=== PATIENT | female | born 1965 | race Caucasian/White ===

== ENCOUNTER 2017-09-11 10:14 | Inpatient (IN) | payer BC, OTHER ==
[~2017-09-11] VITALS: Ht 167.6 cm; Wt 61.2 kg
[2017-09-11 17:15] VITALS: BP 132/72
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
[2017-09-11] MEDS ORDERED: DOCUSATE SODIUM 250 MG CAPSULE PO PRN (17:30)
[2017-09-11] MEDS ORDERED: MIRALAX 17 GM POWD.PACK PO PRN (17:30)
[2017-09-11] MEDS ORDERED: LOPERAMIDE HCL 2 MG CAPSULE PO PRN ×2 (17:30)
[2017-09-11] MEDS ORDERED: MAGNESIUM HYDROXIDE 30 ML LIQUID UDC PO PRN (17:30)
[2017-09-11] MEDS ORDERED: ONDANSETRON 4 MG/2 ML VIAL IM PRN (17:30)
[2017-09-11] MEDS ORDERED: DICYCLOMINE HCL 20 MG TABLET PO PRN (17:30)
[2017-09-11] MEDS ORDERED: BUPRENORPHINE HCL 2 MG TAB.SUBL SL PRN (17:30)
[2017-09-11] MEDS ORDERED: MAG HYDROX/AL HYDROX/SIMETH 30 ML LIQUID UDC PO PRN (17:30)
[2017-09-11] MEDS ORDERED: LORAZEPAM 1 MG TABLET PO PRN (17:30)
[2017-09-11] MEDS ORDERED: LORAZEPAM 2 MG/1 ML VIAL IM PRN (17:30)
[2017-09-11] MEDS ORDERED: ACETAMINOPHEN 325 MG TABLET PO PRN (17:30)
[2017-09-11 18:14] LABS: BASOPHILS % (AUTO) 0.7 % (0.0-2.0); EOSINOPHILS % (AUTO) 0.8 % (0.0-7.0); HEMATOCRIT 41.4 % (31.2-41.9); HEMOGLOBIN 14.5 g/dL (10.9-14.3); LYMPHOCYTES % (AUTO) 49.6 % (20.5-51.5); MEAN CORPUSCULAR HEMOGLOBIN 33.9 uug (24.7-32.8); MEAN CORPUSCULAR HGB CONC 35 g/dL (32.3-35.6); MEAN CORPUSCULAR VOLUME 96.7 fL (75.5-95.3); MONOCYTES # (AUTO) 0.6 K/uL (2.0-10.0); MONOCYTES % (AUTO) 10.7 % (0.0-11.0); NEUTROPHILS # (AUTO) 2.3 K/uL (1.8-8.9); NEUTROPHILS % (AUTO) 38.2 % (38.5-71.5); PLATELET COUNT (AUTO) 268 K/uL (179-408); RED BLOOD CELL COUNT(AUTO) 4.28 MIL/uL (3.63-4.92)
[2017-09-11 18:24] LABS: *URINE HCG, QUAL NEGATIVE (NEGATIVE)
[2017-09-11 18:26] LABS: ETHANOL < 3 MG/DL (0-0)
[2017-09-11 18:31] LABS: *AMPHETAMINE, URINE NEGATIVE (NEGATIVE); *BARBITURATE, URINE POSITIVE (NEGATIVE); *CANNABINOID, URINE POSITIVE (NEGATIVE); *COCCAINE, URINE NEGATIVE (NEGATIVE); *OPIATE, URINE POSITIVE (NEGATIVE); *PHENCYCLIDINE SCREEN,URINE NEGATIVE (NEGATIVE)
[2017-09-11 18:36] LABS: ALANINE AMINOTRANSFERASE 24 U/L (14-59); ALKALINE PHOSPHATASE 51 U/L (50-136); ASPARTATE AMINOTRANSFERASE 7 U/L (15-37); BILIRUBIN,TOTAL 0.3 mg/dL (0.2-1.0); CARBON DIOXIDE 29 mmol/L (21-32); CHLORIDE 96 mmol/L (98-107); CREATININE 0.9 mg/dL (0.6-1.3); GLUCOSE 93 mg/dL (74-106); POTASSIUM 3.6 mmol/L (3.5-5.1); TOTAL PROTEIN, SERUM 7.9 g/dL (6.4-8.2); UREA NITROGEN, BLOOD 6 mg/dL (7-18)
[2017-09-11] MEDS ORDERED: METO75TA PO (18:42)
[2017-09-11] MEDS ORDERED: LOSA100T15 PO (18:42)
[2017-09-11] MEDS ORDERED: ESCI20TA PO ×2 (18:42→20:29)
[2017-09-11] MEDS ORDERED: ASPI1TAB4 PO (18:42)
[2017-09-11] MEDS ORDERED: LEVE500T9 PO (18:42)
[2017-09-11] MEDS ORDERED: HYDR12.5 PO (18:43)
[2017-09-11] MEDS ORDERED: TOPI50TA PO (18:43)
[2017-09-11 18:45] LABS: THYROID STIMULATING HORMONE 1.579 mIU/mL (0.358-3.740)
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
[2017-09-11] MEDS ORDERED: PATIENT MAY USE OWN MED- MD OK PO PRN (19:30)
--- NOTE | 2017-09-11 19:30 | NUR ---
Start of Shift Pt is a 52 y/o femaile admitted 09/11/17 for medically managed withdrawal/detox from Prescription Opiates, Valium. Last opiate use at 1630 and last valium use 1200 hours. GRISEL/RUSSELL reported as 2/3. Pt found sitting on bed, in dim light, eyes red yet laughing with DIESEL ELECTRICIAN, appears worried, states concern about withdrawal. States she has a H/A, request Fioricet. Explained to pt that a narcotic is probably not to be administered in this setting. GRISEL/RUSSELL 2/3 day shift, 08/27 at 2100. Ativan 1mg with 2100 meds, will monitor and reavaluate in 1 hour, promptly attending to all needs.
[2017-09-11 20:00] VITALS: BP 113/48
[2017-09-11] MEDS ORDERED: TIZA4TAB4 PO (20:29)
[2017-09-11] MEDS ORDERED: METH-406 PO (20:29)
[2017-09-11] MEDS ORDERED: BACL10TA PO (20:29)
[2017-09-11] MEDS ORDERED: ONDA4TAB10 PO (20:29)
[2017-09-11] MEDS ORDERED: OXYC-133 PO (20:29)
[2017-09-11] MEDS ORDERED: MORP30TA59 PO (20:29)
[2017-09-11] MEDS ORDERED: METOPROLOL 50 MG PO SCH (21:00)
[2017-09-11] MEDS ORDERED: PATIENT MAY USE OWN MED- MD OK PO SCH (21:00)
[2017-09-11] MEDS: GABAPENTIN 300 MG CAPSULE PO SCH (21:53)
[2017-09-11] MEDS: LORAZEPAM 1 MG TABLET PO PRN (21:55)
--- NOTE | 2017-09-11 21:55 | NUR ---
PRN Med Ativan 1mg PO given for CIWA 11, anxiety and agitation. Will continue to monitor and attend to all needs promptly
--- NOTE | 2017-09-11 22:55 | NUR ---
PRN Med Reassessment Ativan 1mg PO. Pt found laying in bed, reports decreased anxiety, has wet compress over forehead and eyes, reporting H/A. Will continue to monitor and attend to all needs promptly
[2017-09-11] MEDS ORDERED: TIZANIDINE PO PRN (23:15)
[2017-09-11] MEDS ORDERED: [UNRECOGNIZED DRUG - OTHER] PO PRN (23:15)
[2017-09-11] MEDS: diphenhydrAMINE 50 MG CAPSULE PO PRN (23:39)
--- NOTE | 2017-09-11 23:40 | NUR ---
PRN Meds Tylenol 650mg PO and Benedryl 50mg PO given for c/o H/A 10, and insomnia. Will reassess in 1 hour and continue to monitor, promptly attending to all needs
[2017-09-12] VITALS (8 sets, daily range): BP systolic 138–189; BP diastolic 67–106
--- NOTE | 2017-09-12 00:40 | NUR ---
PRN Med Reassessment Tylenol 650mg PO and Benedryl 50mg PO given 2340 for H/A and insomnia. H/A improved to 3/10, still no drowsiness. VS's obtained, show BP of 152/101, HR 43. Will continue to monitor and promptly attend to all needs
[2017-09-12] MEDS: METHOCARBAMOL 750 MG TABLET PO PRN (01:07)
[2017-09-12] MEDS: hydrALAZINE HCL 50 MG TABLET PO PRN ×3 (01:08→21:09)
--- NOTE | 2017-09-12 01:10 | NUR ---
PRN Meds C/O back pain, 08/26, BP 152/101, HR 43 (pt states low HR is normal for her from much physical training and marathons in past) Apresoline 50mg PO and Robaxin 750mg PO given. Will continue to monitor and attend to all needs promptly
--- NOTE | 2017-09-12 07:30 | NUR ---
End of Shift Notes: Pt currently in bed with eyes closed. Pt slept for 2 hours. Pts last COWS was 3 and CIWA was 5 at 0000 when pt was woken up while asleep. Pt received PRN Robaxin and PRN Tylenol for pain, PRN Hydralazine for hypertension, and PRN Ativan for increased withdrawal symptoms. Fall and Sz precautions observed. Bed in lowest position. Side rails up x2. Call light functioning and within reach. All needs attended and met. Will endorse to day shift nurse.
--- NOTE | 2017-09-12 07:31 | NUR ---
Start of Shift Animal Skinner received report on 52 year old female admitted to [facility] on 09/11/17 for medical management of Benzodiazepine and Opiate withdrawal. Pt endorses allergies to Hydrocodone, Morphine, Naloxone and Naltrexone. Pt PMH of HTN, Fibromyalgia, Migraines, depression and a history of withdrawal related seizures. Pt has a history of Bradycardia due to pt's training and running in Marathons. Pt to be started on Ativan and Subutex taper this am. Pt administered Ativan(anxiety), Tylenol(pain), Robaxin(muscle aches), Benadryl(insomnia) and Apresoline(HTN) on NOC, per report. Pt's last COWS 3 and CIWA 3 per NOC report. Animal Skinner encounters pt in her room, resting. Pt is A/O x4 and able to make needs known. Clear of thought and speech. Flat affect with normal mood. Endorses feeling generalized fatigue, muscle cramps, nausea and anxiety. Bed in low position with wheels locked and side rails up x2. Will continue to monitor, support and encourage according to plan of care.
[2017-09-12] MEDS: LOSARTAN POTASSIUM 100 MG PO SCH (08:45)
[2017-09-12] MEDS: GABAPENTIN 300 MG CAPSULE PO SCH ×2 (08:46→21:08)
[2017-09-12] MEDS: BUPRENORPHINE HCL 2 MG TAB.SUBL SL SCH ×4 (08:46→21:10)
[2017-09-12] MEDS: METOPROLOL TARTRATE 50 MG TABLET PO SCH ×2 (08:47→17:37)
[2017-09-12] MEDS: IBUPROFEN 600 MG TABLET PO PRN (08:47)
[2017-09-12] MEDS: LORAZEPAM 1 MG TABLET PO SCH ×4 (08:47→21:09)
--- NOTE | 2017-09-12 08:47 | NUR ---
PRN Frankrin Pt complain of pain related to withdrawal and requests medication. Non-pharmacological interventions attempted. Trimmer And Reinforcer administers medication per order and pt tolerates well. Will continue to monitor, support and encourage according to plan of care.
[2017-09-12] MEDS ORDERED: TUBERCULIN,PURIF.PROT.DERIV. 5 TU/0.1 ML TEST ID ONE (09:00)
--- NOTE | 2017-09-12 09:47 | NUR ---
PRN Re-Assessment Pt states her pain has minimized, but not eliminated. " I feel better, good for now." Will continue to monitor, support and encourage according to plan of care.
[2017-09-12] MEDS: ESCITALOPRAM OXALATE 10 MG TABLET PO SCH (10:48)
--- NOTE | 2017-09-12 10:48 | NUR ---
PRN Apresoline Pt's BP on 8am check elevated. Wire Transfer Clerk administered am medication, including HTN medication. Wire Transfer Clerk re-checked BP: 161/89. Wire Transfer Clerk administered medication to order and pt tolerated well. Will continue to monitor, support and encourage according to plan of care .
[2017-09-12] MEDS ORDERED: LOSARTAN POTASSIUM 50 MG TABLET PO SCH (11:30)
--- NOTE | 2017-09-12 12:00 | NUR ---
PRN Re-Assessment Vfx Artist deferred to noon VS for re-check on BP: 138/88. Medication effective. Will continue to monitor, support and encourage according to plan of care.
--- NOTE | 2017-09-12 19:11 | NUR ---
End of Shift Infantry Officer provided report on 52 year old female admitted to [facility] on 09/11/17 for medical management of Benzodiazepine and Opiate withdrawal. Pt endorses allergies to Hydrocodone, Morphine, Naloxone and Naltrexone. Pt PMH of HTN, Fibromyalgia, Migraines, depression and a history of withdrawal related seizures. Pt was administered Motrin(pain) and Apresoline(HTN) on a PRN basis today. Pt was started on an Ativan and Subutex taper, tolerating well with last COWS 9 and CIWA 10. Pt with complaints of nausea, muscle caches and is diaphoretic. Pt responds well to scheduled doses. Pt is A/O x4 and able to make needs known. Clear of thought and speech. Pt has a restricted affect with anxious mood. Pt is pleasant and polite and makes minimal complaints. Bed in low position with wheels locked and side rails up x2. Will continue to monitor, support and encourage according to plan of care.
--- NOTE | 2017-09-12 19:30 | NUR ---
START OF SHIFT Received 52 year old female patient admitted on 09/11/17 for Benzodiazepine and Opiate withdrawal. Pt is alert and oriented x4. She is receiving a 5 day Subutex and 5 day Ativan taper and tolerating well. She is noted to be anxious, restless,fidgety, sweaty, tremulous and agitated. She complains of clammy skin, body aches, sensitivity to light and sound, headache, and difficulty falling asleep. Per endorsement, she received PRN Motrin and Apresoline. Breathing is even and unlabored, safety measures in place. Will monitor.
[2017-09-12] MEDS: diphenhydrAMINE 50 MG CAPSULE PO PRN (21:08)
--- NOTE | 2017-09-12 21:09 | NUR ---
PRN BENADRYL/APRESOLINE Pt complains of insomnia. Pt also noted with increased BP; 159/101, HR:88. PRN Benadryl and Apresoline administered as ordered. Breathing even and unlabored, safety measures in place. Will monitor.
--- NOTE | 2017-09-12 22:09 | NUR ---
PRN REASSESSMENT PRN Benadryl ineffective. Pt still awake watching TV. PRN Apresoline effective. BP: 165/84, HR: 64. Safety measures in place. Will monitor.
[2017-09-13] VITALS: BP 156/86
[2017-09-13] MEDS: LORAZEPAM 1 MG TABLET PO PRN (00:52)
--- NOTE | 2017-09-13 00:52 | NUR ---
PRN ATIVAN Pt noted to be anxious, restless and agitated. CIWA:11. PRN Ativan 1 mg administered as ordered. Safety measures in place. Will monitor effectiveness.
--- NOTE | 2017-09-13 01:52 | NUR ---
PRN ATIVAN REASSESSMENT PRN medication effective. Pt is lying in bed with eyes closed noted to be asleep. Breathing is even and unlabored, safety measures in place. Will monitor.
[2017-09-13 04:00] VITALS: BP 148/88
--- NOTE | 2017-09-13 07:11 | NUR ---
END OF SHIFT Pt is a 52 year old female patient admitted on 09/11/17 for Benzodiazepine and Opiate withdrawal. Pt remains alert and oriented x4. She continues on a 5 day Subutex and 5 day Ativan taper and tolerating well. She was noted to be anxious, restless,fidgety, sweaty, tremulous, hypertensive and agitated during the shift. She had complaints of insomnia and anxiety. She received PRN Apresoline, Benadryl and Ativan. She slept a total of 4 hrs, Intake: 1,350mL, Void: x1, BM:0, CIWA:11, COWS: 9 at 0000. Breathing is even and unlabored, safety measures in place. Endorsed to AM shift.
--- NOTE | 2017-09-13 07:15 | NUR ---
Start of Shift Teacher Resource received report on 52 year old female admitted to [facility] on 09/11/17 for medical management of Benzodiazepine and Opiate withdrawal. Pt endorses allergies to Hydrocodone, Morphine, Naloxone and Naltrexone. Pt PMH of HTN, Fibromyalgia, Migraines, depression and a history of withdrawal related seizures. Pt has a history of Bradycardia due to pt's training and running in Marathons. Pt administered Ativan(anxiety), Benadryl(insomnia) and Apresoline(HTN) on NOC, per report. Pt's last COWS 9 and CIWA 11 per NOC report. Teacher Resource encounters pt in her room resting with eyes closed, rise and fall of chest noted, with even and unlabored respirations. Bed in low position with wheels locked and side rails up x2. Will continue to monitor, support and encourage according to plan of care.
[2017-09-13 08:06] LABS: HEPATITIS B SURFACE AG Negative (Negative)
[2017-09-13 08:27] VITALS: BP 148/94
[2017-09-13] MEDS ORDERED: HYDROXYZINE PAMOATE 25 MG CAPSULE PO PRN (09:00)
[2017-09-13] MEDS: BUPRENORPHINE HCL 2 MG TAB.SUBL SL SCH ×3 (10:04→20:14)
[2017-09-13] MEDS: LORAZEPAM 1 MG TABLET PO SCH ×3 (10:04→20:12)
[2017-09-13] MEDS: METOPROLOL TARTRATE 50 MG TABLET PO SCH ×2 (10:04→17:21)
[2017-09-13] MEDS: GABAPENTIN 300 MG CAPSULE PO SCH ×3 (10:04→20:13)
[2017-09-13] MEDS: ESCITALOPRAM OXALATE 10 MG TABLET PO SCH (10:05)
[2017-09-13] MEDS: LOSARTAN POTASSIUM 100 MG PO SCH (10:06)
--- NOTE | 2017-09-13 10:07 | NUR ---
PRN Tizanidine Pt complain of back pain and spasms and requests her home medication for spasms. Wildlife Science Professor administers per order with pt toelrating well. Will continue to monitor, support and encourage according to plan of care.
[2017-09-13] MEDS: ONDANSETRON ODT 4 MG TAB.RAPDIS SL PRN ×2 (10:40→20:14)
--- NOTE | 2017-09-13 10:40 | NUR ---
PRN Zofran Pt complain of worsening nausea without emesis. Transformation Architect administers mediation per order with pt tolerating well. Will continue to monitor, support and encourage according to plan of care.
--- NOTE | 2017-09-13 11:07 | NUR ---
PRN Tizanidine Re-Assessment Pt endorses relief, stating, " not nearly as tight." Will continue to monitor, support and encourage according to plan of care.
--- NOTE | 2017-09-13 11:10 | NUR ---
ESME Richards Re-Assessment Pt reports improved nausea, " feeling better." Will continue to monitor, support and encourage according to plan of care.
[2017-09-13 12:30] VITALS: BP 113/77
[2017-09-13] MEDS: DICYCLOMINE HCL 20 MG TABLET PO SCH ×2 (14:40→20:14)
[2017-09-13 17:06] VITALS: BP 152/88
--- NOTE | 2017-09-13 18:56 | NUR ---
End of Shift Laborer Hoisting provided report on 52 year old female admitted to [facility] on 09/11/17 for medical management of Benzodiazepine and Opiate withdrawal. Pt endorses allergies to Hydrocodone, Morphine, Naloxone and Naltrexone. Pt PMH of HTN, Fibromyalgia, Migraines, depression and a history of withdrawal related seizures. Pt has a history of Bradycardia due to pt's training and running in Marathons. Pt administered Tizanidine(muscle spasms) and Zofran(nausea). Pt currently on a Subutex and Ativan taper. Pt's last COWS 8 and CIWA 9 recorded at 1600. Pt has been calm and cooperative, makes her needs known. Normal affect with congruent mood. Pt is diaphoretic, has muscle spasms and is nauseous at times. A/O x4, clear thought and speech process. Pt has been isolative to room and self, withdrawn and guarded. Bed in low position with wheels locked and side rails up x2. Will continue to monitor, support and encourage according to plan of care.
--- NOTE | 2017-09-13 19:30 | NUR ---
START OF SHIFT Received 52 year old female patient admitted on 09/11/17 for Benzodiazepine and Opiate withdrawal. Pt is alert and oriented x4. She continues on a 5 day Ativan and 5 day Subutex taper and is tolerating well. She reports anxiety, chills, sweats, agitation, restlessness, nausea, appetite loss, abdominal cramps, body aches, and insomnia. Per endorsement, she received PRN Zofran. Last COWS:8, CIWA: 9 at 1600. Breathing is even and unlabored, safety measures in place. Will monitor.
[2017-09-13 20:01] VITALS: BP 178/90
[2017-09-13] MEDS: BACLOFEN 10 MG TABLET PO SCH (20:13)
[2017-09-13] MEDS: diphenhydrAMINE 50 MG CAPSULE PO PRN (20:13)
--- NOTE | 2017-09-13 20:13 | NUR ---
PRN ZOFRAN/BENADRYL Pt complains of nausea and insomnia. PRN Zofran and Benadryl administered as ordered. Breathing even and unlabored, safety measures in place. Will continue to monitor.
[2017-09-13] MEDS ORDERED: AMLODIPINE 5 MG TABLET PO SCH (21:00)
--- NOTE | 2017-09-13 21:13 | NUR ---
PRN REASSESSMENT PRN medications effective. Pt is lying in bed with eyes closed noted to be asleep. Breathing is even and unlabored, safety measures in place. Will continue to monitor.
[2017-09-14] VITALS: BP 134/68
[2017-09-14 04:00] VITALS: BP 129/76
--- NOTE | 2017-09-14 07:16 | NUR ---
END OF SHIFT Pt is a 52 year old female patient admitted on 09/11/17 for Benzodiazepine and Opiate withdrawal. Pt remains alert and oriented x4. She continues on a 5 day Ativan and 5 day Subutex taper. She is currently on day 08/21 and is tolerating well. She had complaints of anxiety, chills, sweats, agitation, restlessness, nausea, abdominal cramps, body aches, and insomnia during the shift. At 2012 she received PRN Zofran and Benadryl. She slept a total of 8hrs, Intake: 1,750mL, Void:x4, BM:0, COWS:9, CIWA:9 at 2000. Breathing is even and unlabored, safety measures in place. Endorsed to AM shift.
--- NOTE | 2017-09-14 07:30 | NUR ---
START OF SHIFT Pt 52 y/o female admitted for bzd and opioid withdrawal. Pt received in room on bed with eyes closed resting, but easily arousable to name. Pt alert and oriented to name, place, and time. Perrla. Skin warm and moist to touch. Respirations even and unlabored. Bilateral hand tremors noted. Pt appears unkempt and disheveled. Clothes scattered throughout the room. Encouraged to maintain hygiene. It was reported that pt slept for 8 hours last night. Last cows=9 and ciwa=9 reported at 1999. Bed on lowest position with side rails x2 up for safety. Call light within reach. Addendum: 09/14/17 at 0944 by HANNAH FRANCIS RN additional Pt is on a 5 day ativan taper and is on day 2. Pt is on a 5 day subutex taper and is on day 2.
[2017-09-14 08:00] VITALS: BP 127/76
[2017-09-14] MEDS: LOSARTAN POTASSIUM 100 MG PO SCH (08:26)
[2017-09-14] MEDS: GABAPENTIN 300 MG CAPSULE PO SCH ×2 (08:26→14:34)
[2017-09-14] MEDS: LORAZEPAM 1 MG TABLET PO SCH ×2 (08:26→12:07)
[2017-09-14] MEDS: BACLOFEN 10 MG TABLET PO SCH ×2 (08:26→21:44)
[2017-09-14] MEDS: ESCITALOPRAM OXALATE 10 MG TABLET PO SCH (08:26)
[2017-09-14] MEDS: DICYCLOMINE HCL 20 MG TABLET PO SCH ×3 (08:27→21:41)
[2017-09-14] MEDS: METOPROLOL TARTRATE 50 MG TABLET PO SCH ×2 (08:27→17:04)
[2017-09-14] MEDS ORDERED: AMLODIPINE 5 MG TABLET PO SCH (09:00)
[2017-09-14] MEDS ORDERED: BUPRENORPHINE HCL 2 MG TAB.SUBL SL SCH (09:00)
[2017-09-14 12:00] VITALS: BP 147/82
--- NOTE | 2017-09-14 12:30 | NUR ---
Therapist prompted client about group times. Client stated she does not plan to attend groups today because she feels "sore and tired."
[2017-09-14] MEDS: BUPRENORPHINE HCL 2 MG TAB.SUBL SL SCH ×2 (14:33→21:44)
[2017-09-14 16:00] VITALS: BP 159/93
[2017-09-14] MEDS ORDERED: LORAZEPAM 1 MG TABLET PO SCH ×2 (17:00→21:00)
[2017-09-14] MEDS: ASPIRIN/ACETAMINOPHEN/CAFFEINE TABLET PO PRN (17:04)
[2017-09-14] MEDS: ONDANSETRON ODT 4 MG TAB.RAPDIS SL PRN (17:04)
--- NOTE | 2017-09-14 17:10 | NUR ---
PRN Pt states has migraine 01/26. Excedrin po prn per MD order given and tolerated well.
--- NOTE | 2017-09-14 17:11 | NUR ---
PRN Pt states feels nauseated. Zofran odt prn per MD order given and tolerated well.
--- NOTE | 2017-09-14 18:10 | NUR ---
PRN GISSELLEAL pt observed sitting on bed watching television. Pt states migraine 08/26.
--- NOTE | 2017-09-14 18:11 | NUR ---
PRN EVAL Pt denies any nausea at this time.
--- NOTE | 2017-09-14 18:32 | NUR ---
END OF SHIFT Pt 52 y/o female admitted for bzd and opioid withdrawal. Pt alert and oriented to name, place, and time. Perrla. Skin warm and moist to touch. Respirations even and unlabored. Bilateral hand tremors noted. Pt appears disheveled and unkempt. Empty water bottles scattered throughout the room. Encouraged to maintain hygiene. Pt observed mostly isolative to room throughout the day. Pt did not attend group activity today. Pt was seen by MD today. Pt medication compliant and tolerated well. No ASE noted. Pt is on a 5 day ativan a taper and is on day 2. Pt is also on a 5 day subutex taper and is on day 2. Last cows=10@0800, 10@1200, and 10@1600. Last ciwa=9@0800, 9@1200, and 9@1600. Bed on lowest position with side rails x2 up for safety. Call light within reach.
--- NOTE | 2017-09-14 19:15 | NUR ---
Start of Shift Note: Received patient from day shift nurse. Patient is a 52 y.o female admitted for medically supervised withdrawal from Opiates and Benzos. Patient is alert & oriented x4. Patient is ambulatory with a steady gait. Patient noted with an anxious mood, appears disheveled and unkempt. Patient presented with chills, restlessness, dilated pupils, fine tremors, reports 7/10 generalized body aches and anxiety. Patient is on a 5-day Ativan and Subutex taper and tolerating taper well. No adverse reactions noted. Patient received PRN Zofran and Excedrin during day shift. Last COWS 10 CIWA 9 at 1600. Encourage pt to increase fluid intake. Educated patient of current plan of care for the night. Safety measures in place. Will continue to monitor patient.
[2017-09-14 20:00] VITALS: BP 148/89
[2017-09-14] MEDS ORDERED: GABAPENTIN 300 MG CAPSULE PO SCH (21:00)
[2017-09-14] MEDS: AMLODIPINE 5 MG TABLET PO SCH (21:41)
[2017-09-14] MEDS: diphenhydrAMINE 50 MG CAPSULE PO PRN (21:53)
--- NOTE | 2017-09-14 21:53 | NUR ---
PRN Benadryl Patient requesting for medication to help him sleep. PRN Benadryl administered as ordered. Will continue to monitor patient.
--- NOTE | 2017-09-14 23:03 | NUR ---
PRN Benadryl Patient still awake at this time. No pain/discomfort noted. Will continue to monitor patient.
[2017-09-15 04:00] VITALS: BP 128/76
--- NOTE | 2017-09-15 07:02 | NUR ---
End of Shift Note: Patient is a 52 y.o female admitted for medically supervised withdrawal from Opiates and Benzos. Pt continues on a Ativan and Subutex taper and tolerating well. Vitals noted WNL with no abnormalities noted. Continue to closely monitor signs and symptoms of withdrawal. Last COWS 9 CIWA 9. Pt received PRN Benadryl during my shift and was effective. Pt remained compliant with medications and treatment. Continue to encourage pt attends group activity. Patient still asleep at this time and appears comfortable. Pt slept for a total of 6 hours. Voided 2x with no bowel movement noted. All needs attended & met. Safety measures in place. Will endorse pt to day shift nurse.
--- NOTE | 2017-09-15 07:30 | NUR ---
START OF SHIFT Pt 52 y/o female admitted for bzd and opioid withdrawal. Pt received in room on bed with eyes closed resting, but easily arousable to name. Pt alert and oriented to name, place, and time. Perrla. Skin warm and moist to touch. Respirations even and unlabored. Bilateral hand tremors noted. Pt appears unkempt and disheveled. Empty bottles scattered throughout the room. Encouraged to maintain hygiene. It was reported that pt slept for 6 hours last night. Last cows=9 and ciwa=9 reported at 1999. Pt is on a 5 day ativan taper and is on day 3. Pt is also on a 5 day subutex taper and is on day 3. Bed on lowest position with side rails x2 up for safety. Call light within reach.
[2017-09-15 08:00] VITALS: BP 138/85
[2017-09-15] MEDS ORDERED: LORAZEPAM 1 MG TABLET PO SCH ×3 (09:00→21:00)
[2017-09-15] MEDS: ESCITALOPRAM OXALATE 10 MG TABLET PO SCH (09:05)
[2017-09-15] MEDS: BACLOFEN 10 MG TABLET PO SCH ×3 (09:05→20:26)
[2017-09-15] MEDS: ONDANSETRON ODT 4 MG TAB.RAPDIS SL PRN (09:05)
[2017-09-15] MEDS: DICYCLOMINE HCL 20 MG TABLET PO SCH ×3 (09:06→20:26)
[2017-09-15] MEDS: ASPIRIN/ACETAMINOPHEN/CAFFEINE TABLET PO PRN (09:06)
[2017-09-15] MEDS: BUPRENORPHINE HCL 2 MG TAB.SUBL SL SCH ×3 (09:06→20:26)
[2017-09-15] MEDS: METOPROLOL TARTRATE 50 MG TABLET PO SCH ×2 (09:06→16:38)
[2017-09-15] MEDS: AMLODIPINE 5 MG TABLET PO SCH (09:06)
[2017-09-15] MEDS: GABAPENTIN 300 MG CAPSULE PO SCH ×3 (09:06→20:25)
[2017-09-15] MEDS: LOSARTAN POTASSIUM 100 MG PO SCH (09:15)
--- NOTE | 2017-09-15 09:17 | NUR ---
PRN Pt states feels nauseated. Zofran odt prn per MD order given and tolerated well.
--- NOTE | 2017-09-15 09:17 | NUR ---
PRN Pt states has migraine 01/26. Excedrin po prn per MD order given and tolerated well.
--- NOTE | 2017-09-15 10:17 | NUR ---
PRN EVAL Pt denies any nausea at this time.
--- NOTE | 2017-09-15 10:17 | NUR ---
PRN EVAL pt states migraine 08/26.
[2017-09-15] MEDS ORDERED: KETOROLAC TROMETHAMINE 30 MG INJ IM PRN (11:15)
[2017-09-15 12:00] VITALS: BP 132/71
[2017-09-15 16:00] VITALS: BP 141/92
[2017-09-15] MEDS ORDERED: HYDR-3895 PO (16:46)
[2017-09-15] MEDS ORDERED: BACL10TA PO (16:46)
[2017-09-15] MEDS ORDERED: IBUP-1955 PO (16:46)
[2017-09-15] MEDS ORDERED: DIPH50CA37 PO (16:46)
[2017-09-15] MEDS ORDERED: DICY20TA28 PO (16:46)
[2017-09-15] MEDS ORDERED: AMLO10TA2 PO (16:46)
[2017-09-15] MEDS ORDERED: METH-406 PO (16:46)
[2017-09-15] MEDS ORDERED: GABA-534 PO (16:46)
[2017-09-15] MEDS ORDERED: METO50TA16 PO (16:46)
--- NOTE | 2017-09-15 19:15 | NUR ---
Start of Shift Note: Received patient from day shift nurse. Patient is a 52 y.o female admitted for medically supervised withdrawal from Opiates and Benzos. Patient is alert & oriented x4. Patient is ambulates with a cane. Patient is withdrawn, has a flat affect and noted with anxious mood, appears flushed, disheveled and unkempt. Patient is isolative and stayed in her room most of the time during the day. Encourage pt to maintain personal hygiene and to increase activity. Patient presented with clammy skin, is restless, dilated pupils, fine tremors, reports 7/10 pain on her neck and upper back and mild headache. Patient continues on a 5-day Ativan and Subutex taper and tolerating taper well. No adverse reactions noted. Patient received PRN Zofran and Excedrin during day shift. Last COWS 9 CIWA 9 at 1600. Encourage pt to increase fluid intake. Educated patient of current plan of care for the night. Safety measures in place. Will continue to monitor patient.
--- NOTE | 2017-09-15 19:23 | NUR ---
END OF SHIFT Pt 52 y/o female admitted for bzd and opioid withdrawal. Pt alert and oriented to name, place, and time. Perrla. Skin warm and moist to touch. Respirations even and unlabored. Bilateral hand tremors noted. Pt appears disheveled and unkempt. Clothes and empty water bottles scattered throughout the room. Encouraged to maintain hygiene. Pt observed mostly isolative to room throughout the day. Pt did not attend group activity today. Pt was seen by MD today. Pt medication compliant and tolerated well. No ASE noted. Pt is on a 5 day ativan a taper and is on day 3. Pt is also on a 5 day subutex taper and is on day 3. Last cows=9@0800, 9@1200, and 9 @1600. Last ciwa=9@0800, 9@1200, and 9@1600. Bed on lowest position with side rails x2 up for safety. Call light within reach.
[2017-09-15 20:00] VITALS: BP 150/83
[2017-09-15] MEDS: METHOCARBAMOL 750 MG TABLET PO PRN (20:25)
[2017-09-15] MEDS: diphenhydrAMINE 50 MG CAPSULE PO PRN (20:26)
--- NOTE | 2017-09-15 20:26 | NUR ---
PRN Robaxin & Benadryl Patient complained of 7/10 pain on her neck and upper back and requesting for medication to help her sleep. PRN Robaxin & Benadryl administered as ordered. Will monitor for effectiveness of medication.
--- NOTE | 2017-09-15 21:26 | NUR ---
PRN Reassessment Patient still awake at this time. Patient verbalized decreased in pain from 7/10 to 3/10 after medication administration. Patient in bed and appears comfortable. Safety measures in place. Will continue to monitor patient.
[2017-09-16] VITALS: BP 125/79
--- NOTE | 2017-09-16 07:25 | NUR ---
End of Shift Note: Pt continues on a Ativan and Subutex taper and tolerating well. Vitals noted WNL with no abnormalities noted. Continue to closely monitor signs and symptoms of withdrawal. Last COWS 9 CIWA 9. Pt received PRN Benadryl for sleep and Robaxin for pain during my shift and were effective. Pt reports that taper medication Is effective in controlling withdrawal symptoms. Pt still noted to be isolative and stayed in her room most of the time. Pt remained compliant with medications and treatment. Continue to encourage pt to attend group activity to learn coping skills. Patient still asleep at this time and appears comfortable. Pt slept for a total of 8 hours. Fluid intake 1798ml. Voided 2x with no bowel movement noted. All needs attended & met. Safety measures in place. Will endorse pt to day shift nurse.
--- NOTE | 2017-09-16 07:30 | NUR ---
START OF SHIFT Pt 52 y/o female admitted for bzd and opioid withdrawal. Pt received in room on bed with eyes closed resting with television on, but easily arousable to name. Pt alert and oriented to name, place, and time. [place]. Skin warm and moist to touch. Respirations even and unlabored. Bilateral hand tremors noted. Pt appears unkempt and disheveled. Food wrappings and clothes scattered throughout the room. Pt appears with low motivation for self care. Encouraged to maintain hygiene. It was reported that pt slept for 8 hours last night. Last cows=9 and ciwa=9 reported at 2100. Pt is on a 5 day ativan taper and is on day 4. Pt is also on a 5 day subutex taper and is on day 4. Bed on lowest position with side rails x2 up for safety. Call light within reach.
[2017-09-16 08:00] VITALS: BP 114/81
[2017-09-16] MEDS: ONDANSETRON ODT 4 MG TAB.RAPDIS SL PRN ×2 (08:51→20:07)
[2017-09-16] MEDS: DICYCLOMINE HCL 20 MG TABLET PO SCH ×3 (08:51→20:08)
[2017-09-16] MEDS: BACLOFEN 10 MG TABLET PO SCH ×3 (08:52→20:07)
[2017-09-16] MEDS: AMLODIPINE 10 MG TABLET PO SCH (08:52)
[2017-09-16] MEDS: METOPROLOL TARTRATE 50 MG TABLET PO SCH ×2 (08:52→16:15)
[2017-09-16] MEDS: GABAPENTIN 300 MG CAPSULE PO SCH ×3 (08:52→20:07)
[2017-09-16] MEDS: ESCITALOPRAM OXALATE 10 MG TABLET PO SCH (08:52)
[2017-09-16] MEDS: ASPIRIN/ACETAMINOPHEN/CAFFEINE TABLET PO PRN (08:52)
[2017-09-16] MEDS: LORAZEPAM 1 MG TABLET PO SCH ×3 (08:53→20:08)
[2017-09-16] MEDS: LOSARTAN POTASSIUM 100 MG PO SCH (08:53)
[2017-09-16] MEDS: BUPRENORPHINE HCL 2 MG TAB.SUBL SL SCH ×2 (08:53→20:07)
--- NOTE | 2017-09-16 08:55 | NUR ---
PRN pt states has migraine 11/26. Excedrin po prn per MD order given and tolerated well.
--- NOTE | 2017-09-16 08:55 | NUR ---
PRN Pt states feels nauseous. Zofran odt prn per MD order given and tolerated well.
--- NOTE | 2017-09-16 08:55 | NUR ---
PRN Pt states has body aches 11/26. Robaxin po prn per MD order given and tolerated well. Addendum: 09/16/17 at 1440 by HANNAH FRANCIS RN incorrect pt
[2017-09-16] MEDS ORDERED: LORAZEPAM 1 MG TABLET PO SCH (09:00)
--- NOTE | 2017-09-16 09:55 | NUR ---
PRN EVAL pt states migraine 07/29.
--- NOTE | 2017-09-16 09:55 | NUR ---
PRN EVAL Pt denies any nausea at this time.
[2017-09-16 12:00] VITALS: BP 129/70
[2017-09-16 16:00] VITALS: BP 148/82
--- NOTE | 2017-09-16 18:48 | NUR ---
END OF SHIFT Pt 52 y/o female admitted for bzd and opioid withdrawal. Pt alert and oriented to name, place, and time. [place]. Skin warm and moist to touch. Respirations even and unlabored. Bilateral hand tremors noted. Pt appears disheveled and unkempt. Clothes and empty water bottles scattered throughout the room. Encouraged to maintain hygiene. Pt observed isolative to room throughout the day mostly just watching television in bed. Pt did not attend group activity today. Pt was seen by MD today. Pt medication compliant and tolerated well. No ASE noted. Pt is on a 5 day ativan a taper and is on day 4. Pt is also on a 5 day subutex taper and is on day 4. Last cows=9@0800, 9@1200, and 9@1600. Last ciwa=9@0800, 9@1200, and 9@1600. Bed on lowest position with side rails x2 up for safety. Call light within reach.
--- NOTE | 2017-09-16 19:15 | NUR ---
Start of Shift Note: Received patient from day shift nurse. Patient is a 52 y.o female admitted for medically supervised withdrawal from Opiates and Benzos. Patient is alert & oriented x4. Patient is withdrawn, has anxious/irritable mood, appears flushed, disheveled and unkempt. Patient still noted to be isolative and stayed in her room most and does not attend groups. Pt needs continues encouragement to attend groups to learn new coping skills to maintain sobriety. Encourage pt to maintain personal hygiene and to increase activity. Patient presented with clammy skin, is restless, dilated pupils, fine tremors, reports nausea, stomach cramps and constipation, 7/10 pain on her neck and mild headache. Patient continues on a 5-day Ativan and Subutex taper and tolerating taper well. No adverse reactions noted. Patient received PRN Zofran and Excedrin during day shift. Last COWS 9 CIWA 9 at 1600. Encourage pt to increase fluid intake. Educated patient of current plan of care for the night. Safety measures in place. Will continue to monitor patient.
[2017-09-16 20:00] VITALS: BP 143/88
[2017-09-16] MEDS: diphenhydrAMINE 50 MG CAPSULE PO PRN (20:07)
--- NOTE | 2017-09-16 20:07 | NUR ---
PRN Miralax/Zofran/Benadryl/Motrin Patient complained of stomach cramps and nausea, reports constipation and 7/10 neck pain and headache. Pt also request for medication to help her sleep. PRN Miralax, Zofran, Benadryl and Motrin administered as ordered. Will continue to monitor for effectiveness.
[2017-09-16] MEDS: IBUPROFEN 600 MG TABLET PO PRN (20:08)
--- NOTE | 2017-09-16 21:07 | NUR ---
PRN Reassessment Pt still awake at this time. Pt verbalized improved nausea & decreased in pain from 7/10 to 4/10 after medication administration. Pt in bed and appears comfortable. Still no bowel movement at this time. Will continue to monitor patient.
[2017-09-17] VITALS: BP 132/74
--- NOTE | 2017-09-17 07:06 | NUR ---
End of Shift Note: Pt continues on a Ativan and Subutex taper and tolerating well. Vitals noted WNL with no abnormalities noted. Continue to closely monitor signs and symptoms of withdrawal. Last COWS 10 CIWA 10. Pt received PRN Benadryl for sleep, Motrin for pain, Zofran for nausea, & Miralax for constipation during my shift. Pt reports that taper medication Is effective in controlling withdrawal symptoms. Pt still noted to be isolative and stayed in her room most of the time. Pt remained compliant with medications and treatment. Continue to encourage pt to attend group activity to learn coping skills. Patient still asleep at this time and appears comfortable. Pt slept for a total of 9 hours. Fluid intake 1796ml. Voided 4x. Pt still noted with no bowel movement. Will continue to monitor BM. All needs attended & met. Safety measures in place. Will endorse pt to day shift nurse.
--- NOTE | 2017-09-17 07:50 | NUR ---
START OF SHIFT NOTE Received report from night nurse, 52 year old male admitted for Valium,OxyContin, Moscontin withdrawal. Patient continues on Subutex and Ativan taper tolerating well. Per endorsement patient received PRN Benadryl, Motrin, Miralax, Zofran effective per night nurse, last CIWA/COWS was 10, and slept for 9 hours. Received patient awake, alert and oriented x4, educated regarding plan of care and medication regimen with good verbal understanding. Patient deniers any SI/HI, patient appears anxious, agitated due to withdrawal. Schedule medications due. Safety measures in place. will continue to monitor.
[2017-09-17 08:00] VITALS: BP 116/80
[2017-09-17] MEDS ORDERED: BUPRENORPHINE HCL 2 MG TAB.SUBL SL SCH (09:00)
[2017-09-17] MEDS ORDERED: LORAZEPAM 1 MG TABLET PO SCH (09:00)
[2017-09-17] MEDS: BACLOFEN 10 MG TABLET PO SCH ×3 (09:23→21:31)
[2017-09-17] MEDS: GABAPENTIN 300 MG CAPSULE PO SCH ×3 (09:23→21:31)
[2017-09-17] MEDS: DICYCLOMINE HCL 20 MG TABLET PO SCH ×3 (09:23→21:31)
[2017-09-17] MEDS: ESCITALOPRAM OXALATE 10 MG TABLET PO SCH (09:23)
[2017-09-17] MEDS: LOSARTAN POTASSIUM 100 MG PO SCH (09:37)
[2017-09-17] MEDS: AMLODIPINE 10 MG TABLET PO SCH (09:37)
[2017-09-17] MEDS: METOPROLOL TARTRATE 50 MG TABLET PO SCH ×2 (10:01→17:16)
[2017-09-17] MEDS ORDERED: MAGNESIUM CITRATE 296 ML BOTTLE PO PRN (11:00)
--- NOTE | 2017-09-17 11:24 | NUR ---
PRN MAGNESIUM CITRATE Patient c/o of constipation, non pharmacological intervention ineffective. PRN Magnesium citrate given as ordered. Will cont to monitor and reassess the patient.
[2017-09-17 12:00] VITALS: BP 132/88
--- NOTE | 2017-09-17 12:24 | NUR ---
MAGNESIUM CITRATE REASSESSMENT Per patient medication was effective and had a small BM.
[2017-09-17 16:00] VITALS: BP 139/93
[2017-09-17] MEDS: ASPIRIN/ACETAMINOPHEN/CAFFEINE TABLET PO PRN (18:14)
--- NOTE | 2017-09-17 18:14 | NUR ---
PRN EXCEDRIN Patient reported headache 11/26, PRN Excedrin 1 tab given as ordered. Will cont to monitor and reassess.
--- NOTE | 2017-09-17 19:07 | NUR ---
EXCEDRIN REASSESSMENT Per patient medication was effective headache lower to 3/10.
--- NOTE | 2017-09-17 19:09 | NUR ---
END OF SHIFT NOTE Gave report to night nurse, patient presented with anxiety, agitation, lightheaded, chills, constipation, headache. Patient was given scheduled medications and PRN Magnesium citrate and Excedrin noted to be effective. Patient able to consumed 100% of his meals.Vital signs WNL. Patient set for d/c in AM. Encourage pt to develop coping skills and utilization of non pharmacological intervention. Patient rested in her room most of the time. Patient was encouraged to participates in groups therapy session. Encourage diversional activities to alleviate anxiety. Patient denies any SI/HI. Safety measures in place. Patient endorsed to night nurse in stable condition.
--- NOTE | 2017-09-17 19:30 | NUR ---
START OF SHIFT Patient is a 52-year-old female admitted on 09/11/17 for benzo and opiate withdrawal. Patient has completed 5-day Ativan taper and 5-day Subutex taper, tolerated well; patient is scheduled for discharge tomorrow. Last COWS was 6, last CIWA was 7 as reported by day shift nurse. Patient received PRN mag citrate earlier today, which was noted as effective, as evidenced by 2 bowel movements. Patient also received PRN Excedrin for headache. Upon assessment, patient is alert and oriented x4. Patient appears disheveled, hair appears unwashed and clothes have small holes and stains. Patients room is cluttered, bed unmade, patients belongings scattered. Patient reports feeling "nauseous" and complains of "sharp pain" around the back of her neck and right side of her face. Patient is on fall and seizure precautions, with history of withdrawal induced seizures. Safety measures in place, side rails up x2, bed locked in low position, call light within reach. Will continue to monitor.
[2017-09-17] MEDS: ONDANSETRON ODT 4 MG TAB.RAPDIS SL PRN (19:38)
--- NOTE | 2017-09-17 19:39 | NUR ---
PRN ZOFRAN & TORADOL Patient reports nausea and headache pain 8/10 on pain scale. Patient states that pain is "sharp, stabbing pain" that continue from the back of her neck to the front right side of her face. PRN Zofran given SL at 1938 and PRN Toradol given IM in patient's right deltoid at 193. Safety measures in place, call light within reach. Will monitor for effectiveness.
[2017-09-17 20:00] VITALS: BP 149/96
--- NOTE | 2017-09-17 20:09 | NUR ---
PRN ZOFRAN & TORADOL REASSESSMENT Patient reports that nausea has subsided. Patient states "I don't have any more pain in my neck or head." Patient reports 0/10 on pain scale. Both PRN meds were noted to be effective. Safety measures in place, call light within reach. Will continue to monitor.
[2017-09-17] MEDS: diphenhydrAMINE 50 MG CAPSULE PO PRN (21:34)
--- NOTE | 2017-09-17 21:34 | NUR ---
PRN BENADRYL Patient reports difficulty sleeping and is requesting sleep aid. PRN Benadryl given PO. Safety measures in place, call light within reach. Will monitor for effectiveness.
--- NOTE | 2017-09-17 22:43 | NUR ---
PRN BENADRYL REASSESSMENT Patient is observed in her bed watching television. Patient states she is tired and ready for bed. PRN Benadryl is somewhat effective. Safety measures in place, call light within reach. Will continue to monitor.
[2017-09-18] VITALS: BP 168/97
[2017-09-18] MEDS: METHOCARBAMOL 750 MG TABLET PO PRN (00:18)
[2017-09-18] MEDS: hydrALAZINE HCL 50 MG TABLET PO PRN ×2 (00:19→13:02)
--- NOTE | 2017-09-18 00:19 | NUR ---
PRN ROBAXIN & HYDRALAZINE Patient woke up after midnight vitals, complaining of neck/headache 7/10 on pain scale. Current BP is 168/97, heart rate 54 beats per min. PRN Robaxin given PO for pain, PRN Hydralazine given PO for BP greater than 160/100. Safety measures in place, call light within reach. Will monitor for effectiveness.
--- NOTE | 2017-09-18 01:19 | NUR ---
PRN ROBAXIN & HYDRALAZINE REASSESSMENT Patient reports pain 4/10 on pain scale. Patient's BP has decreased: 128/84. Both PRN meds noted to be effective. Will continue to monitor.
[2017-09-18 04:00] VITALS: BP 132/87
--- NOTE | 2017-09-18 07:05 | NUR ---
END OF SHIFT Patient is a 52-year-old female admitted on 09/11/17 for benzo and opiate withdrawal. Patient has completed 5-day Ativan taper and 5-day Subutex taper, tolerated well; patient is scheduled for discharge today. Last COWS was 4, last CIWA was 5. Patient received PRN Toradol IM, Zofran SL, Benadryl PO, Robaxin PO, and Hydralazine PO. All PRN medications were noted to be effective. Patient slept for 8 hours, total intake 918mL, void x3, stool x0. Patient is on fall and seizure precautions, with history of withdrawal induced seizures. Safety measures in place, side rails up x2, bed locked in low position, call light within reach. Will endorse to day shift.
--- NOTE | 2017-09-18 07:30 | NUR ---
start of shift note: receievd pt from night shift supervisor nurse, pt is in stable condition no s/s of pain or discomfort, pt is admitted to [facility] for benzo/opiate withdrawal/dependence. pt is set to discharge today will assist pt in discharging. pt is pleasant and cooperative., pts last documented cows 4 and ciwa 5. will continue to monitor pt for any changes
[2017-09-18] MEDS: AMLODIPINE 10 MG TABLET PO SCH (08:21)
[2017-09-18] MEDS: GABAPENTIN 300 MG CAPSULE PO SCH ×2 (08:21→14:22)
[2017-09-18] MEDS: ASPIRIN/ACETAMINOPHEN/CAFFEINE TABLET PO PRN (08:21)
[2017-09-18] MEDS: METOPROLOL TARTRATE 50 MG TABLET PO SCH ×2 (08:21→16:32)
[2017-09-18] MEDS: DICYCLOMINE HCL 20 MG TABLET PO SCH ×2 (08:21→14:23)
[2017-09-18] MEDS: ESCITALOPRAM OXALATE 10 MG TABLET PO SCH (08:21)
[2017-09-18] MEDS: LOSARTAN POTASSIUM 100 MG PO SCH (08:21)
[2017-09-18] MEDS: BACLOFEN 10 MG TABLET PO SCH ×2 (08:21→14:22)
--- NOTE | 2017-09-18 08:26 | NUR ---
prn administration: pt with complaints of headache excedrin was administered, pt with headache pain level 8/10 will re-assess effectiveness of medication
--- NOTE | 2017-09-18 09:30 | NUR ---
Prn -reassessment: pt verbalized pain level is 2/10, from headache, excederin was somewhat effective.
[2017-09-18 10:06] VITALS: BP 156/91
--- NOTE | 2017-09-18 10:36 | NUR ---
endorsed pt to RN, pt is in stable condition
--- NOTE | 2017-09-18 10:41 | NUR ---
ASSUMED CARE OF PT. SHE IS A/O X 4. D/C PLANNING IN PROGRESS FOR TODAY.
[2017-09-18 12:00] VITALS: BP 144/95
[2017-09-18] MEDS: IBUPROFEN 600 MG TABLET PO PRN (13:02)
[2017-09-18 16:00] VITALS: BP 160/90
[2017-09-18 16:32] VITALS: BP 160/90
--- NOTE | 2017-09-18 17:07 | NUR ---
DISCHARGE: PT IS A/O X 4. SHE DENIES S/I AND H/I. SHE STATES HE FEELS ENTHUSIASTIC TOWARD RECOVERY. BELONGINGS RETURNED. EDUCATED PT ON DISCHARGE MEDS AND INSTRUCTIONS. PT EXPRESSED VERBAL UNDERSTANDING OF EDUCATION . [employer] SAL[employer]SULT[employer] ESCORTED PT TO [facility] WHERE SHE WAS TRANSPORTED BY [employer] TO [facility] AT 1700.
== END 2017-09-18 17:00 | disposition home or self-care (01) | DRG 895 ==
LOC: SRC 16:32
PROVIDERS: ADMIT Internal Medicine; ATTEND Internal Medicine
PROC: HZ2ZZZZ Detoxification Services for Substance Abuse Treatment (ICD-10-PCS; principal; 2017-09-11)
PROC: HZ31ZZZ Individual Counseling for Substance Abuse Treatment, Behavioral (ICD-10-PCS; 2017-09-14)
DX: F11.23 Opioid dependence with withdrawal (principal); E87.8 Other disorders of electrolyte and fluid balance, not elsewhere classified; I15.9 Secondary hypertension, unspecified; E87.1 Hypo-osmolality and hyponatremia; F13.239 Sedative, hypnotic or anxiolytic dependence with withdrawal, unspecified; E86.0 Dehydration; F41.9 Anxiety disorder, unspecified; G43.909 Migraine, unspecified, not intractable, without status migrainosus; Z81.1 Family history of alcohol abuse and dependence; Z83.3 Family history of diabetes mellitus; Z82.49 Family history of ischemic heart disease and other diseases of the circulatory system; G89.29 Other chronic pain; M54.5 Low back pain; M79.7 Fibromyalgia; M16.10 Unilateral primary osteoarthritis, unspecified hip; F32.9 Major depressive disorder, single episode, unspecified; F12.20 Cannabis dependence, uncomplicated
CPT/HCPCS: 36415; 80307; 80345; 80346; 80349; 80361; 83735; 84443; 84703; 85025; 86580; 86592; 86705; 86803; 87340; 87806; A4663; A9150; G0480; J1885; Q0162; Q0163